=== PATIENT | male | born 1990 | race Caucasian/White ===

== ENCOUNTER 2017-07-15 03:06 | Emergency (ER) | payer BC ==
[2017-07-15] MEDS ORDERED: Ketorolac INJ* 30 MG/ML 1 ML VIAL IV ONE (03:22)
[2017-07-15] MEDS ORDERED: Morphine INJ* 4 MG/ML 1 ML CARPUJECT IV ONE (03:22)
[2017-07-15] MEDS ORDERED: Metoclopramide IV* 5 MG/ML 2 ML VIAL IV ONE (03:22)
[2017-07-15] MEDS ORDERED: NS 0.9% 1000 ML* 1,000 ML IV ONE (03:22)
[2017-07-15 03:53] LABS: ABS Basophils 0 10^3/ul (0-0.2); ABS Eosinophils 0.1 10^3/ul (0-0.6); ABS Lymphocytes 1.8 10^3/ul (1.0-4.8); ABS Monocytes 0.6 10^3/ul (0-0.8); ABS Neutrophils 9.3 10^3/ul (1.5-7.7); ABS Nucleated RBC 0 10^3/ul; Eosinophil % 0.8 % (0-6); Hematocrit 45 % (42-52); Hemoglobin 15.3 g/dl (14.0-18.0); Lymphocyte % 15.4 % (25-47); Mean Corpuscular HGB Conc 34 g/dl (31-36); Mean Corpuscular Hemoglobin 32 pg (27-31); Mean Corpuscular Volume 93 fL (80-94); Mean Platelet Volume 9 um3 (7.4-10.4); Nucleated Red Blood Cells % 0; Platelet Count 159 10^3/ul (150-450); Red Blood Count 4.86 10^6/ul (4.0-5.4); Red Cell Distribution Width 13 % (10.5-15); White Blood Count 11.9 10^3/ul (3.5-10.8)
[2017-07-15 04:04] LABS: EGFR Non-African American 80.3 (>60)
[2017-07-15 04:45] LABS: Urine Appearance Clear; Urine Blood 3+ (Negative); Urine Color Yellow; Urine Ketones Trace (Negative); Urine Protein 1+(30 mg/dL) (Negative); Urine Specific Gravity 1.029 (1.010-1.030); Urine Urobilinogen Negative (Negative)
--- NOTE | 2017-07-15 05:04 | ED ---
Abel Gonzalez Gabriel, scribed for Jonathan Gunter MD on 07/15/17 at 0341 . Abdominal Pain/Male - HPI Summary HPI Summary: This patient is a 26 year old M presenting to [facility] accompanied by his girlfriend with a chief complaint of ABD pain that began an hour ago. The patient rates the pain 10/10 in severity and describes it as a belt of pain radiating from his ABD to his back. Patient reports n/v, groin pain, and trouble urinating. Pt had a similar pain a few days ago that was not as severe and resolved. Last BM was earlier tonight and normal. - History of Current Complaint Chief Complaint: EDFlankPain Stated Complaint: ABD PAIN/VOMITING Hx Obtained From: Patient Onset/Duration: Lasting Hours, Still Present Timing: Constant Severity Initially: Severe Severity Currently: Severe Pain Intensity: 10 Pain Scale Used: 0-10 Numeric Location: Diffuse, Groin Radiates: Yes Associated Signs And Symptoms: Positive: Urinary Symptoms, Nausea, Vomiting - Allergies/Home Medications Allergies/Adverse Reactions: Allergies Allergy/AdvReac Type Severity Reaction Status Date / Time No Known Allergies Allergy Verified 07/15/17 03:09 PMH/Surg Hx/FS Hx/Imm Hx Endocrine/Hematology History: Denies: Hx Diabetes Respiratory History: Reports: Hx Asthma, Hx Seasonal Allergies Denies: Hx Chronic Obstructive Pulmonary Disease (COPD) History: Denies: Hx Acute Renal Failure, Hx Benign Prostatic Hyperplasia Infectious Disease History: No Infectious Disease History: Denies: Traveled Outside the [place] in Last 30 Days - Family History Known Family History: Positive: Diabetes Negative: Hypertension, Renal Disease, Respiratory Disease, Seizure Disorder - Social History Alcohol Use: Occasionally Substance Use Type: Reports: Marijuana Substance Use Comment - Amount & Last Used: Earlier this evening Smoking Status (MU): Never Smoked Tobacco Review of Systems Positive: Abdominal Pain, Vomiting, Nausea Positive: other - trouble urinating All Other Systems Reviewed And Are Negative: Yes Physical Exam - Summary Physical Exam Summary: VITAL SIGNS: Reviewed. GENERAL: Patient is a well-developed and nourished male who is lying comfortable in the stretcher. Patient is not in any acute respiratory distress. HEAD AND FACE: No signs of trauma. No ecchymosis, hematomas or skull depressions. No sinus tenderness. EYES: PERRLA, EOMI x 2, No injected conjunctiva, no nystagmus. EARS: Hearing grossly intact. Ear canals and tympanic membranes are within normal limits. MOUTH: Oropharynx within normal limits. NECK: Supple, trachea is midline, no adenopathy, no JVD, no carotid bruit, no c- spine tenderness, neck with full ROM. CHEST: Symmetric, no tenderness at palpation LUNGS: Clear to auscultation bilaterally. No wheezing or crackles. CVS: Regular rate and rhythm, S1 and S2 present, no murmurs or gallops appreciated. ABDOMEN: Soft, non-tender. No signs of distention. No rebound no guarding, and no masses palpated. Bowel sounds are normal. EXTREMITIES: FROM in all major joints, no edema, no cyanosis or clubbing. NEURO: Alert and oriented x 3. No acute neurological deficits. Speech is normal and follows commands. SKIN: Dry and warm Triage Information Reviewed: Yes Vital Signs On Initial Exam: Initial Vitals Temp Pulse Resp BP Pulse Ox 97.3 F 63 18 124/76 98 07/15/17 03:07 07/15/17 03:07 07/15/17 03:07 07/15/17 03:07 07/15/17 03:07 Vital Signs Reviewed: Yes Diagnostics - Vital Signs Vital Signs Temp Pulse Resp BP Pulse Ox 07/15/17 03:07 97.3 F 63 18 124/76 98 - Laboratory Result Diagrams: 07/15/17 03:35 07/15/17 03:35 Lab Statement: Any lab studies that have been ordered have been reviewed, and results considered in the medical decision making process. - CT CT ABD/Pelvis CT Interpretation Completed By: Radiologist - mild right hydronephrosis secondary to a 3mm distal right UVJ stone ED physician has reviewed this radiology report. Re-Evaluation - Re-Evaluation First Eval Re-Evaluation Time: 04:26 Change: Improved - The patient is feeling better Second Eval Re-Evaluation Time: 04:41 Change: Worse - The patient's pain has returned. Abdominal Pain Fem Course/Dx - Course Assessment/Plan: This patient is a 26 year old M presenting to [facility] accompanied by his girlfriend with a chief complaint of ABD pain that began an hour ago. The patient rates the pain 10/10 in severity and describes it as a belt of pain radiating from his ABD to his back. Patient reports n/v, groin pain , and trouble urinating. Pt had a similar pain a few days ago that was not as severe and resolved. Last BM was earlier tonight and normal. CT reveals, per radiologist, mild right hydronephrosis secondary to a 3mm distal right UVJ stone . Test results with no significant abnormalities. In the ED course the patient was given morphine, Zofran, reglan, and IV fluids. Dx renal calculi. Patient will be discharged with prescription for Percocet and zofran and follow up from PCP. The patient is agreeable with this plan. - Diagnoses Provider Diagnoses: Renal calculi Discharge - Discharge Plan Condition: Stable Disposition: HOME Patient Education Materials: Kidney Stones (ED), How to Strain Your Urine (ED) , Oxycodone/Acetaminophen (By mouth) Print Language: ALBANIAN Referrals: Katiuska Hart MD [Primary Care Provider] - 3 Days Additional Instructions: Use Percocet for pain and Zofran for nausea as needed. RETURN TO EMERGENCY DEPARTMENT FOR ANY NEW OR WORSENING SYMPTOMS The documentation as recorded by the Abel hernandez Gabriel accurately reflects the service I personally performed and the decisions made by , Jonathan Gunter MD.
[2017-07-15 05:06] VITALS: BP 119/75
--- NOTE | 2017-07-15 07:38 | RAD ---
CLINICAL HISTORY: Right flank pain, abdominal pain and vomiting COMPARISON: None TECHNIQUE: Noncontrast CT examination of the abdomen and pelvis from the lung bases through the initial tuberosities. FINDINGS: VISUALIZED LUNG BASES: There are pleural-based linear densities as well as patchy groundglass densities at the lung bases. There is a mild degree of bronchiectatic dilatation of the visualized airways. ABDOMEN AND PELVIS: There is a small hiatal hernia with dilatation air seen at the base of the esophagus. Evaluation of the solid organs and vasculature is limited without intravenous contrast. The liver, spleen, pancreas and adrenal glands are grossly normal in appearance. The gallbladder is normal. The left kidney is normal in appearance without focal mass, calcification or signs of hydronephrosis. The right kidney exhibits mild hydronephrosis. At the right ureterovesical junction there is a renal calculus measuring 5 mm in greatest dimension (axial image 171 coronal image 56). Evaluation gastrointestinal tract is limited without oral contrast. The small and large bowel are not distended.The patient's normal appendix is identified in the right lower quadrant measuring 5 mm in diameter (axial image 141).. There is no gross retroperitoneal or mesenteric lymphadenopathy. The pelvic viscera is normal in appearance. The abdominal aorta and iliac arteries are normal in course and diameter. At L4/L5 there are bilateral pars interarticularis defect is not appear to result in any significant spondylolisthesis.There are no sinister bone lesions. IMPRESSION: 1. Mild right-sided hydronephrosis in the presence of a 5 mm renal calculus at the right ureterovesical junction. 2. Lung bases reveal pleural-based linear densities, groundglass opacification and bronchiectatic dilatation of the medium and small airways. This appearance is advanced for the patient's age. Please correlate to history of chronic lung disease such as cystic fibrosis or tobacco abuse. 3. Hiatal hernia.
== END 2017-07-15 05:06 | disposition home or self-care (01) ==
LOC: ED 03:06
DX: N20.0 Calculus of kidney (principal); R11.2 Nausea with vomiting, unspecified; R10.9 Unspecified abdominal pain; K44.9 Diaphragmatic hernia without obstruction or gangrene; N13.30 Unspecified hydronephrosis
CPT/HCPCS: 36415; 74176; 80053; 81003; 81015; 82150; 83690; 85025; 86140; 99283; J1885; J2270; J2765

== ENCOUNTER 2021-02-24 12:16 | Day surgery (SDC) ==
[~2021-02-24 12:16] MED LIST: Buffered Lidocaine 1% SYRIN 1 ml INTRADERM ONE; HYDROcodone/ACETAMIN 5/325 mg TAB PO PRN; Lactated Ringers 1000 ml BAG 1,000 ML IV SCH; Naloxone 0.4 mg VIAL 0.4 mg/ml 1 ml VIAL IV PRN; Prochlorperazine 5 mg/ml 2 ml VIAL (10 mg) IV PRN; fentaNYL 100 mcg/2 ml 50 MCG/ML VIAL IV PRN; oxyCODONE/Acetamin 5/325 mg TAB PO PRN
[2021-02-24] MEDS ORDERED: Bupivacaine 0.25% SDV 30 ML ONE (12:52)
[2021-02-24] MEDS ORDERED: Lidocaine 1% VIAL 10 MG/ML VIAL ONE (12:52)
[2021-02-24] MEDS ORDERED: Midazolam 2 mg/2 ml VIAL 1 mg/ml 2 ml VIAL (2 mg) ONE (13:49)
[2021-02-24] MEDS ORDERED: fentaNYL 100 mcg/2 ml 50 MCG/ML VIAL ONE ×2 (13:49→16:02)
[2021-02-24] MEDS ORDERED: Propofol 10 MG/ML 20 ML BTL ONE (13:49)
[2021-02-24] MEDS ORDERED: Lidocaine 2% PF 5 ML VIAL ONE (13:49)
[2021-02-24] MEDS ORDERED: Ketamine HCL 50 mg/ml 10 ml VIAL (500 MG) ONE (13:49)
[2021-02-24] MEDS ORDERED: ROPIVACAINE 5 MG/ML 30 ML BTL (0.5%) ONE (13:50)
[2021-02-24] MEDS ORDERED: Dexamethasone IV 4 MG/ML VIAL 1 ml VIAL ONE ×2 (13:50→15:29)
[2021-02-24] MEDS ORDERED: ceFAZolin 2 GM in NS PREMIX 2 GM/100 ML BAG IVPB ONE (14:35)
[2021-02-24] MEDS ORDERED: Ondansetron 4 mg VIAL 2 MG/ML 2 ml VIAL ONE (15:29)
[2021-02-24] MEDS ORDERED: fentaNYL 250 mcg/5 ml 50 MCG/ML 5 ml VIAL (250 MCG) ONE (15:59)
[2021-02-24] MEDS ORDERED: Naloxone 0.4 mg VIAL 0.4 mg/ml 1 ml VIAL IV PRN (17:55)
[2021-02-24] MEDS ORDERED: oxyCODONE/Acetamin 5/325 mg TAB PO PRN (17:55)
[2021-02-24] MEDS ORDERED: Prochlorperazine 5 mg/ml 2 ml VIAL (10 mg) IV PRN (17:55)
[2021-02-24] MEDS ORDERED: fentaNYL 100 mcg/2 ml 50 MCG/ML VIAL IV PRN (17:55)
[2021-02-24] MEDS ORDERED: HYDROcodone/ACETAMIN 5/325 mg TAB PO PRN (17:55)
[2021-02-24 19:05] VITALS: BP 135/85
== END 2021-02-24 18:50 | disposition home or self-care (01) ==
LOC: OR 12:16 → AA 12:17 → OR 18:50
PROVIDERS: ATTEND Orthopaedic Surgery Hand Surgery